=== PATIENT | female | born 1960 | race Caucasian/White ===

== ENCOUNTER 2018-09-04 07:43 | Day surgery (SDC) | payer OTHER ==
[2018-09-01 10:08] VITALS: BMI 24.2
[2018-09-04] MEDS ORDERED: PROMETHAZINE HCL 25 MG/1 ML VIAL IVPUSH PRN (08:12)
[2018-09-04] MEDS ORDERED: ONDANSETRON 4 MG/2 ML VIAL IVPUSH PRN (08:12)
[2018-09-04] MEDS ORDERED: LACTATED RINGERS SOLUTION 1,000 ML IV SCH (08:15)
[2018-09-04] MEDS ORDERED: ceFAZolin SODIUM 1 GM VIAL IVPB ONE (09:13)
[2018-09-04] MEDS ORDERED: GENTAMICIN 80MG PREMIX BAG IVPB ONE (09:13)
[2018-09-04] MEDS ORDERED: PROPOFOL 20 ML ONE (09:14)
[2018-09-04] MEDS ORDERED: LIDOCAINE HCL/PF 2% SDV 5ML VIAL ONE (09:15)
[2018-09-04] MEDS ORDERED: ceFAZolin SODIUM 1 GM VIAL ONE (09:15)
[2018-09-04] MEDS ORDERED: GENTAMICIN SO4 80 MG/2 ML VIAL ONE (09:16)
[2018-09-04] MEDS ORDERED: DEXAMETHASONE SOD PHOSPHATE 4 MG/1 ML VIAL ONE (09:18)
[2018-09-04] MEDS ORDERED: SODIUM CHLORIDE 0.9% P/F 10 ML VIAL IJ ONE (09:19)
[2018-09-04] MEDS ORDERED: KETOROLAC TROMETHAMINE 30 MG/1 ML VIAL ONE (09:34)
[2018-09-04] MEDS ORDERED: IOHEXOL 300 MG/ML INFUS..BTL IV ONE (09:35)
--- NOTE | 2018-09-04 11:26 | OP ---
Operative Note - Note: Operative Date: 09/04/18 Pre-Operative Diagnosis: right hydronephrosis and microscopic hematuria Operation: cystoscopy/attempted left retrograde pyelogram/left ureteroscopy Findings: posterior wall left ureteral orifice with severe angulation and distal ureteral stricture; ureter appears hypoplastic Surgeon: Reed Singh Anesthesia: General
[2018-09-04 17:16] VITALS: BP 100/62; PULSE 64; TEMP 98.1
--- NOTE | 2018-09-04 22:13 | OP ---
DATE OF OPERATION: 09/04/2018 PREOPERATIVE DIAGNOSES: Left hydronephrosis and microscopic hematuria. POSTOPERATIVE DIAGNOSIS: Left distal ureteral stricture. ATTENDING: Dedrick Gloria MD ANESTHESIA: General. 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 The patient presents for a left retrograde pyelogram. The patient was brought in the operating room, placed in supine position on the operating room table. Anesthesia and preoperative antibiotics were administered to the patient. Patient was then placed in the dorsal lithotomy position and prepped and draped in the usual sterile manner. The cystoscopy was performed. The left ureteral orifice was noted to be at the posterior bladder wall. There was no evidence of an intramural tunnel for the left hypoplastic kidney. Attempts at passing a wire or an open-ended catheter were unsuccessful. A retrograde pyelogram was attempted without any significant success. At this point, ureteroscopy was performed, and the left ureteral orifice was intubated. At this point, attempts at passing a wire proximally were unsuccessful. Multiple attempts were made. The distal ureteral orifice showed evidence of a stricture without evidence of neoplasm. It was decided to observe the patient at this time. Patient was discharged to the recovery room for observation. No complications were noted. DEDRICK GLORIA M.D. [id number]
== END 2018-09-04 14:15 | disposition home or self-care (01) ==
LOC: JASU-SURG 07:43
PROVIDERS: ATTEND Urology
PROC: BT1FZZZ Fluoroscopy of Left Kidney, Ureter and Bladder (ICD-10-PCS; principal; 2018-09-04 09:00)
DX: N13.1 Hydronephrosis with ureteral stricture, not elsewhere classified (principal); R31.29 Other microscopic hematuria; Z53.8 Procedure and treatment not carried out for other reasons
CPT/HCPCS: 94760

== ENCOUNTER 2022-04-20 15:29 | Emergency (ER) | payer OTHER ==
[2022-04-20 15:52] VITALS: BP 137/85; PULSE 102; RESP 18; TEMP 98.1; BMI 24.4
[2022-04-20] MEDS ORDERED: ACETAMINOPHEN 1000 MG/100 ML BAG IVPB ONE (16:32)
[2022-04-20] MEDS ORDERED: SODIUM CHLORIDE 0.9% 500 ML INFUS.BAG IV ONE (16:32)
[2022-04-20] MEDS ORDERED: ACETAMINOPHEN INJECTION 100 ML IVPB ONE (16:52)
[2022-04-20 17:21] LABS: BASO % 1.3 % (0-2.0); EOS % 1.6 % (0-4.5); HEMATOCRIT 40.9 % (32.4-45.2); HEMOGLOBIN 13.8 GM/dL (10.7-15.3); LYMPH % 28.1 % (8-40); MCH 29.4 pg (25.7-33.7); MCHC 33.7 g/dl (32.0-36.0); MEAN CELL VOLUME 87.1 fl (80-96); MEAN PLT VOLUME 7.7 fl (7.5-11.1); MONO % 8.9 % (3.8-10.2); NEUT % 60.1 % (42.8-82.8); PLATELET COUNT 400 10^3/uL (134-434); WHITE BLOOD COUNT 5.9 K/mm3 (4.0-10.0)
[2022-04-20 17:24] LABS: EPI CELLS 2 /uL (0-25.1); HYALINE CASTS 0 /uL (0-3.1); PH,URINE 8.5 (5.0-8.0); URINE APPEARANCE CLEAR; URINE BACTERIA 3 /uL (0-1359); URINE BILIRUBIN NEGATIVE (NEGATIVE); URINE COLOR YELLOW; URINE GLUCOSE (UA) NEGATIVE (NEGATIVE); URINE KETONE NEGATIVE (NEGATIVE); URINE LEUK ESTERASE TRACE (NEGATIVE); URINE NITRITE NEGATIVE (NEGATIVE); URINE PROTEIN NEGATIVE (NEGATIVE); URINE RBC 3 /uL (0-23.9); URINE UROBILINOGEN 0.2 mg/dL (0.2-1.0); URINE WBC 5 /uL (0-25.8)
[2022-04-20 17:47] LABS: ALBUMIN 3.9 g/dl (3.4-5.0); BLOOD UREA NITROGEN 8.4 mg/dL (7-18); CALCIUM 9.5 mg/dL (8.5-10.1); MAGNESIUM 2.1 mg/dL (1.8-2.4)
[2022-04-20 17:50] LABS: CREATININE 0.7 mg/dL (0.55-1.3)
[2022-04-20 17:52] LABS: BILIRUBIN,TOTAL 0.5 mg/dL (0.2-1); TOT PROT 7.2 g/dl (6.4-8.2)
[2022-04-20] MEDS ORDERED: MAG HYDROX/AL HYDROX/SIMETH 30 ML UNIT-DOSE CUP PO ONE (18:49)
[2022-04-20] MEDS ORDERED: MAG HYDROX/AL HYDROX/SIMETH 30 ML UNIT-DOSE CUP ONE (18:56)
== END 2022-04-20 18:59 | disposition home or self-care (01) ==
LOC: JER 15:29
PROC: 3E033GC Introduction of Other Therapeutic Substance into Peripheral Vein, Percutaneous Approach (ICD-10-PCS; principal; 2022-04-20)
DX: R10.32 Left lower quadrant pain (principal)
CPT/HCPCS: 0241U-QW; 36415; 74176-TC; 80053; 81003; 83605; 83735; 85025; 87086; 99285-25